=== PATIENT | male | born 1990 ===

== ENCOUNTER 2022-08-13 14:49 | Outpatient (CLI) | payer OTHER ==
--- NOTE | 2022-08-13 15:54 | MRI Report ---
PROCEDURE: KNEE WO - RT INDICATIONS: RIGHT KNEE PAIN TECHNIQUE: Noncontrast sagittal PD fast spin echo and T2 fast spin echo with fat saturation, sagittal 3-D gradie nt sequence with fat saturation; coronal T1 spin echo and PD fast spin echo with fat saturation, and axial PD fast spin echo with fat saturation through the knee. COMPARISON: None. FINDINGS: Image quality: Excellent. Menisci: The medial and lateral menisci demonstrate normal morphology and internal signal. The meni scal root ligaments appear intact. Cruciate ligaments: The anterior and posterior cruciate ligaments appear intact. Medial structures: The medial collateral ligament appears intact. The posterior oblique ligament, s emimembranosus tendon insertions, and oblique popliteal ligament, and meniscocapsular junction appear intact. Visualized portions of the pes anserinus tendons appear normal. No abnormal bursal fluid. Lateral structures: The lateral collateral ligament, long and short heads of the biceps femoris tend on appear intact. The popliteus tendon appears normal; the popliteofibular ligament appears intact. The posterosuperior and anteroinferior popliteomeniscal fascicles appear intact. The arcuate and fa bellofibular ligaments appear intact, around the lateral inferior geniculate artery. Iliotibial band appears normal. Anterior structures: The quadriceps and patellar tendons appear intact. Patellar alignment is chelsi l. No femoral trochlear dysplasia or ventral trochlear prominence. No edema in the infrapatellar fa t pad. Bones and cartilage: No bone marrow contusions or fractures. There is some mild chondromalacia and f issuring involving the patellar articular surface medial facet. Remainder of the articular cartilage appears intact. Joint space: There is physiologic knee joint fluid. No Amaro's cyst. Normal appearing synovial pli are incidentally noted. IMPRESSION: 1. Mild chondromalacia patellar articular surface medially. Reviewed by: Archie Zafar MD on 08/13/2022 3:53 PM PDT Approved by: Archie Zafar MD on 08/13/2022 3:53 PM PDT Station ID: [id number]
== END 2022-08-13 14:50 | disposition home or self-care (01) ==
LOC: DI 14:49
DX: M25.561 Pain in right knee (principal); M22.41 Chondromalacia patellae, right knee